=== PATIENT | male | born 1960 | race Hispanic/Latino ===

== ENCOUNTER → 2019-01-17 | Outpatient (CLI) | payer OTHER ==
[~2019-01-17] MED LIST: IOPAMIDOL 370 MG/ML 200 ML INFUS..BTL INJ ONE; SODIUM CHLORIDE 0.9% 50ML 50 ML ONE
--- NOTE | 2019-01-17 09:39 | Diagnostic Imaging Report ---
EXAM: US ABDOMEN COMPLETE DATE: 01/17/2019 8:04 AM INDICATION: Abdominal aortic aneurysm COMPARISON: None TECHNIQUE: Transverse and longitudinal nice scale and color doppler sonographic images of the upper abdomen were obtained. FINDINGS: There is no evidence of fluid or masses seen in the area of clinical concern in the right lower quadrant. LIVER 12.9 cm in the right midclavicular line. Normal echogenicity of the liver with normal contour, no masses. SPLEEN 10.7 cm in maximum diameter. Normal echogenicity, no masses. GALLBLADDER No gallbladder wall thickening, distension, stone, or pericholecystic fluid. NEgative reported sonographic Marie's sign. Gallbladder wall measures 2 mm. BILE DUCTS No intra nor extra-hepatic biliary dilation. Common bile duct measures 2 mm PANCREAS: Visualized portions are normal. RIGHT KIDNEY: 9.3 cm Echogenicity: Normal Collecting System: No hydronephrosis Stones: None Cyst/Mass: None LEFT KIDNEY: 9.5 cm Echogenicity: Normal Collecting System: No hydronephrosis Stones: None Cyst/Mass: None VESSELS: Aorta: Visualized portions are within normal size limits (1.5 cm). Inferior Vena Cava: Visualized portions are normal Main Portal Vein: 1.1 cm, normal size with hepatopetal flow. FREE FLUID: None IMPRESSION: Unremarkable abdominal ultrasound. Specifically, no sonographic evidence of abdominal aortic aneurysm. Signed by: Zulay Zamora MD on 01/17/2019 9:36 AM
--- NOTE | 2019-01-17 10:03 | Diagnostic Imaging Report ---
EXAM: CT Chest WITH intravenous contrast 01/17/2019 8:05 AM INDICATION: COPD COMPARISON: None TECHNIQUE: Chest was scanned utilizing a multidetector helical scanner from the lung apex through the level of the adrenal glands after administration of IV contrast. Coronal and sagittal reformations were obtained. Routine protocol was performed. IV CONTRAST: 100mL Isovue 370 RADIATION DOSE: Total DLP: 495.0 mGy*cm. Dose modulation, iterative reconstruction, and/or weight based adjustment of the mA/kV was utilized to reduce the radiation dose to as low as reasonably achievable. COMPLICATIONS: None FINDINGS: LINES/ TUBES: None. LUNGS AND AIRWAYS: The lungs are hyperinflated. The central airways are patent. No focal consolidation. No pulmonary edema. Mild right apical and left upper lobe emphysematous change. Incidental note is made of an azygos fissure. No suspicious pulmonary nodules. PLEURA: No pleural effusion. No pneumothorax. HEART AND MEDIASTINUM: The thyroid gland is normal. No mediastinal, hilar or axillary lymphadenopathy. The heart is normal in size.. There is no pericardial effusion. Scattered coronary artery atherosclerotic calcifications and minimal aortic atherosclerotic calcifications. This study is not optimized for evaluation for pulmonary embolus and, however there are no filling defects up to the segmental level to suggest pulmonary emboli. UPPER ABDOMEN: Small sliding hiatal hernia. Limited contrast enhanced images of the upper abdomen demonstrate no focal abnormality in the partially visualized liver, spleen, pancreas, adrenals, or upper most kidneys. BONES: No acute osseous injury. No suspicious lytic or blastic lesions. SOFT TISSUES: Left axillary surgical clips. IMPRESSION: Hyperinflated lungs and mild right apical and left upper lobe emphysematous change. No suspicious pulmonary nodules. Signed by: Zulay Zamora MD on 01/17/2019 9:59 AM
== END ==
LOC: US 07:47
PROVIDERS: ATTEND Internal Medicine
DX: I71.4 Abdominal aortic aneurysm, without rupture (principal); J44.9 Chronic obstructive pulmonary disease, unspecified
CPT/HCPCS: 71260; 76700; Q9967

== ENCOUNTER 2020-03-27 16:41 | Emergency (ER) | payer OTHER ==
[~2020-03-27] VITALS: Ht 165.1 cm; Wt 64.4 kg
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
== END 2020-03-27 17:35 | disposition home or self-care (01) ==
LOC: ER 16:50
DX: S30.1XXA Contusion of abdominal wall, initial encounter (principal); W22.8XXA Striking against or struck by other objects, initial encounter; Y99.0 Civilian activity done for income or pay
CPT/HCPCS: 99282

== ENCOUNTER 2024-07-02 16:47 | Emergency (ER) | payer OTHER ==
[~2024-07-02] VITALS: Ht 165.1 cm; Wt 66.2 kg
[2024-07-02] MEDS: HYDROCODONE/APAP 5MG-325MG TAB PO ONE (18:01)
[2024-07-02] MEDS ORDERED: PREDNISONE10 MG PO (18:07)
[2024-07-02] MEDS ORDERED: ULTRAM 50MG50 MG PO (18:07)
[2024-07-02] MEDS ORDERED: VALTREX1000 MG PO (18:07)
[2024-07-02 18:39] VITALS: PULSE 66; RESP 16; TEMP 98.8; O2SAT 97
== END 2024-07-02 18:40 | disposition home or self-care (01) ==
LOC: ER 17:47
DX: B02.29 Other postherpetic nervous system involvement (principal)
CPT/HCPCS: 99283

== ENCOUNTER → 2025-02-10 | Day surgery (SDC) | payer OTHER ==
[2025-02-08 11:16] LABS: BASOPHILS % 0.5 % (0.0-1.0); EOSINOPHILS % 0.5 % (0.0-6.0); LYMPHOCYTES % 32.8 % (18.0-39.1); MONOCYTES % 7.2 % (4.4-11.3); NEUTROPHILS % 58.7 % (38.7-80.0); RED CELL DISTRIBUTION WIDTH 12.5 % (11.7-14.4)
[2025-02-08 11:40] LABS: EST GLOMERULAR FILTRATION RATE 83.0 ML/MIN (>=60)
[~2025-02-10] MED LIST changes: +DEXAMETHASONE SOD PHOS INJ 4 MG/ML SDV ONE; +FENTANYL CITRATE/PF 100MCG/2 ML INJ ONE; -IOPAMIDOL 370 MG/ML 200 ML INFUS..BTL INJ ONE; +KETOROLAC TROMETHAMINE 30 MG/ML VIAL ONE; +LIDOCAINE HCL 2% LOCAL INJ 5 ML SDV VIAL INJ ONE; +MIDAZOLAM HCL 2 MG/2 ML VIAL ONE; +ONDANSETRON HCL INJ 2MG/ML 2ML 2 MG/ML VIAL ONE; +PREDNISONE10 MG PO; +PROPOFOL IV EMULSION 10 MG/ML 20 ML VIAL ONE; +SODIUM CHLORIDE 0.9% 100 ML ONE; -SODIUM CHLORIDE 0.9% 50ML 50 ML ONE; +ULTRAM 50MG50 MG PO; +VALTREX1000 MG PO
[2025-02-10 09:30] VITALS: BP 112/80; PULSE 60; RESP 15; O2SAT 96
[2025-02-10] MEDS: LACTATED RINGER'S 1,000 ML ONE (10:15)
[2025-02-10] MEDS: CEFAZOLIN SODIUM 2 GM ONE (10:16)
== END | disposition home or self-care (01) ==
LOC: OR 05:27
PROVIDERS: ATTEND Podiatrist Foot Surgery
DX: M20.41 Other hammer toe(s) (acquired), right foot (principal); F17.210 Nicotine dependence, cigarettes, uncomplicated; Z01.810 Encounter for preprocedural cardiovascular examination; Z01.812 Encounter for preprocedural laboratory examination
CPT/HCPCS: 28285 ×2; 36415; 71046; 80048; 85025; 93005; C1713; J1100; J1885; J2003; J2250; J2405; J2704; J3010; J7050; J7121; 76000